=== PATIENT | female | born 1960 ===

== ENCOUNTER 2019-11-20 09:28 | Emergency (ER) | payer OTHER ==
[~2019-11-20] VITALS: Ht 160 cm; Wt 81.6 kg
[2019-11-20] MEDS ORDERED: NORVASC2.5 M1 (09:39)
== END 2019-11-20 14:10 | disposition home or self-care (01) ==
LOC: ER 09:28
DX: N92.5 Other specified irregular menstruation (principal); Z20.828 Contact with and (suspected) exposure to other viral communicable diseases